=== PATIENT | male | born 1985 | race Hispanic/Latino ===

== ENCOUNTER 2016-06-08 17:40 | Observation (INO) | payer OTHER ==
[2016-06-08 17:57] VITALS: O2SAT 98
[2016-06-08] MEDS ORDERED: Sodium Chloride 0.9% 1,000 ML IV STA (18:18)
--- NOTE | 2016-06-08 18:23 | ED PDOC ---
HPI: Abdomen Time Seen by Provider: 06/08/16 17:46 Chief Complaint (Nursing): Abdominal Pain Chief Complaint (Provider): Abdominal Pain History Per: Patient History/Exam Limitations: no limitations Onset/Duration Of Symptoms: Days (3-4) Severity: Moderate Pain Scale Rating Of: 4 Quality Of Discomfort: "Pain" Associated Symptoms: Loss Of Appetite. denies: Fever, Chills, Nausea, Vomiting Exacerbating Factors: Movement, Deep Breaths Additional Complaint(s): Constantine Vora is a 31 y/o male, with a past medical history of ulcers, presenting to the ER on 06/08/2016 with complaints of right sided abdominal pain onset three -four days. Patient describes pain as "constant" and strictly localized to the right side with no radiation. He states the pain is at a 4/10, but increases sometimes to a 7 or 8 due to exacerbation factors such as bending down (when tying his shoe), deep breaths, or general movement. He denies straining himself via physical activity. Patient additionally denies any rashes, hematuria, dysuria, nausea, or vomiting. Patient says he has had a decreased appetite since the initial onset of symptoms but the pain is not associated with him eating meals. Admits to drinking alcohol yesterday. Past Medical History Reviewed: Historical Data, Nursing Documentation, Vital Signs Vital Signs: Last Vital Signs Temp 97.8 F 06/08/16 17:45 Pulse 58 L 06/08/16 17:45 Resp 20 06/08/16 17:45 BP 135/92 H 06/08/16 17:45 Pulse Ox 98 06/08/16 18:30 - Medical History Other PMH: ulcers - Surgical History Surgical History: Endoscopy Other surgeries: colonoscopy - Family History Family History: States: Unknown Family Hx - Social History Current smoker - smoking cessation education provided: No - Allergies Allergies/Adverse Reactions: Allergies Allergy/AdvReac Type Severity Reaction Status Date / Time No Known Allergies Allergy Verified 06/08/16 17:45 Review of Systems ROS Statement: Except As Marked, All Systems Reviewed And Found Negative Constitutional: Negative for: Fever, Chills Cardiovascular: Negative for: Chest Pain Respiratory: Negative for: Cough, Shortness of Breath Gastrointestinal: Positive for: Abdominal Pain. Negative for: Nausea, Vomiting Genitourinary Male: Negative for: Dysuria, Hematuria Physical Exam - Reviewed Nursing Documentation Reviewed: Yes Vital Signs Reviewed: Yes - Physical Exam Appears: Positive for: Non-toxic, Uncomfortable (appears disheveled and stoic ) Head Exam: Positive for: ATRAUMATIC, NORMOCEPHALIC Skin: Positive for: Normal Color, Warm, Dry Eye Exam: Positive for: Normal appearance, EOMI, PERRL ENT: Positive for: Normal ENT Inspection, Other ((+) DMM) Neck: Positive for: Normal, Painless ROM, Supple Cardiovascular/Chest: Positive for: Regular Rate, Rhythm. Negative for: Murmur Respiratory: Positive for: Normal Breath Sounds. Negative for: Respiratory Distress Gastrointestinal/Abdominal: Positive for: Tenderness (exquisite tenderness in RUQ), Other ((+) Valdez's sign ) Back: Negative for: L CVA Tenderness, R CVA Tenderness Extremity: Positive for: Normal ROM. Negative for: Deformity, Swelling Lymphatic: Positive for: Normal Exam. Negative for: Adenopathy Neurologic/Psych: Positive for: Alert, Oriented (x3). Negative for: Motor/ Sensory Deficits - ECG O2 Sat by Pulse Oximetry: 98 Medical Decision Making Medical Decision Makin:46 Initial Impression- Right sided upper abdominal pain. Differential dx includes but not limited to gall bladder disease, PUD, PNA w/ irritation of diaphragm, UTI, pyelonephritis, and kidney stones Initial Plan- * CMP * Lipase * ED Urine * CBC w/ differential * CXR * Pepcid 20 mg IVP * Sodium Chloride 1,000 ml IV * US Abdomen Complete Documented by Lianna Leyva, acting as a scribe for Mahsa Gant MD. All medical record entries made by the Scribe were at my direction and personally dictated by me. I have reviewed the chart and agree that the record accurately reflects my personal performance of the history, physical exam, medical decision making, and the department course for this patient. I have also personally directed, reviewed, and agree with the discharge instructions and disposition. Disposition - Clinical Impression Clinical Impression: Abdominal discomfort - Patient ED Disposition Is Patient to be Admitted: Transfer of Care - Disposition Disposition: Transfer of Care Disposition Time: 19:06 Condition: STABLE Patient Signed Over To: Peace Swann Present On Arrival: None
[2016-06-08 19:28] LABS: BASO % 0.6 % (0.0-2.0); EOS # 0.2 K/uL (0.0-0.7); EOS % 2.9 % (0.0-4.0); HEMATOCRIT 41.9 % (35.0-51.0); LYMPH # 2.5 K/uL (1.0-4.3); LYMPH % 37.9 % (20.0-40.0); MEAN CELL VOLUME 89.2 fl (80.0-94.0); MEAN CORPUSCULAR HEMOGLOBIN 31.2 pg (27.0-31.0); MEAN PLATELET VOLUME 7.9 fl (7.2-11.7); MONO # 0.6 K/uL (0.0-0.8); MONO % 8.6 % (0.0-10.0); NEUT # 3.3 K/uL (1.8-7.0); NRBC % 0.1 % (0.0-0.0); RED CELL DISTRIBUTION WIDTH 12.8 % (11.5-14.5); WHITE BLOOD COUNT 6.6 K/uL (4.8-10.8)
--- NOTE | 2016-06-08 19:33 | ED PDOC ---
- Laboratory Results Result Diagrams: 06/08/16 19:00 06/08/16 19:00 - ECG O2 Sat by Pulse Oximetry: 98 (RA) Pulse Ox Interpretation: Normal - CT Scan/US Abdomen/Pelvis CT Other Rad Studies (CT/US): Interpreted By Me, Read By Radiologist, Radiology Report Reviewed Medical Decision Making Medical Decision Makin:00 Patient signed out to provider by Dr. Gant. Pending labs and final disposition. 20:51 Patient was reevaluated and reports no improvement in pain. Will order CT scan. 00:10 Abdomen/Pelvis CT Results FINDINGS: Lower thorax: No acute findings. ABDOMEN: Liver: Diffuse fatty infiltration of the liver. Gallbladder and bile ducts: Unremarkable. No calcified stones. No ductal dilation. Pancreas: Unremarkable. No mass. No ductal dilation. Spleen: Unremarkable. No splenomegaly. Adrenals: Unremarkable. No mass. Kidneys and ureters: Unremarkable. No solid mass. No hydronephrosis. Stomach and bowel: Mild fat stranding seen surrounding nondilated right abdominal small bowel loops, nonspecific. This could reflect inflammation, infection, or other etiology. Clinical correlation recommended. Appendix: The appendix is not definitively identified, but no definite evidence of appendicitis is observed in the expected location of the appendix. PELVIS: Bladder: Unremarkable. No mass. Reproductive: Unremarkable as visualized. ABDOMEN and PELVIS: Intraperitoneal space: Unremarkable. No free air. No significant fluid collection. Bones/joints: No acute fracture. No dislocation. Soft tissues: Unremarkable. Vasculature: Unremarkable. No abdominal aortic aneurysm. Lymph nodes: Unremarkable. No enlarged lymph nodes. IMPRESSION: 1. The appendix is not definitively identified, but no definite evidence of appendicitis is observed in the expected location of the appendix. 2. Mild fat stranding seen surrounding nondilated right abdominal small bowel loops, nonspecific. This could reflect inflammation, infection, or other etiology. Clinical correlation recommended. discussed results with patient. pt tolerated po and was resting comfortably in room throughout ER stay and appears to be comfortable thrroughout. pt will follow up with pcp Documented by Lianna Leyva and Frantz Partida, acting as a scribe for Peace Swann MD. All medical record entries made by the Scribe were at my direction and personally dictated by me. I have reviewed the chart and agree that the record accurately reflects my personal performance of the history, physical exam, medical decision making, and the department course for this patient. I have also personally directed, reviewed, and agree with the discharge instructions and disposition. Disposition - Clinical Impression Clinical Impression: Abdominal discomfort - POA Present On Arrival: None - Disposition Disposition: Routine/Home Disposition Time: 00:00 Condition: IMPROVED
[2016-06-08 19:37] LABS: ALB/GLOB RATIO 1.1 (1.0-2.1); ALKALINE PHOSPHATASE 61 U/L (38-126); ALT/SGPT 72 U/L (21-72); AST/SGOT 38 U/L (17-59); BILIRUBIN,TOTAL 0.7 mg/dl (0.2-1.3); BLOOD UREA NITROGEN 14 mg/dl (9-20); CALCIUM 9.3 mg/dL (8.4-10.2); CARBON DIOXIDE 27 mmol/L (22-30); CHLORIDE 105 mmol/L (98-107); GFR AFRICAN-AMERICAN > 60; GLUCOSE,RANDOM 89 mg/dL (75-110); LIPASE 75 U/L (23-300); POTASSIUM 4.1 MMOL/L (3.6-5.0); SODIUM 139 mmol/l (132-148); TOTAL PROTEIN 7.8 G/DL (6.3-8.2)
[2016-06-08] MEDS ORDERED: Iohexol 240 (50 ml) PO ONE (20:51)
[2016-06-08] MEDS ORDERED: Iohexol 300 100 ML IJ ONE (23:01)
[2016-06-08] MEDS ORDERED: Sodium Chloride 0.9% 50 ML IV ONE (23:01)
[2016-06-09 00:51] VITALS: BP 118/72; PULSE 86; RESP 16; TEMP 98.2
--- NOTE | 2016-06-09 08:57 | RAD ---
HISTORY: RUQ pain worse with deep breaths COMPARISON: No prior. TECHNIQUE: Chest PA and lateral FINDINGS: LUNGS: No active pulmonary disease. PLEURA: No significant pleural effusion identified. No pneumothorax apparent. CARDIOVASCULAR: Normal. OSSEOUS STRUCTURES: No significant abnormalities. VISUALIZED UPPER ABDOMEN: Normal. OTHER FINDINGS: None. IMPRESSION: No active disease.
--- NOTE | 2016-06-09 09:29 | CT ---
PROCEDURE: CT Abdomen and Pelvis with contrast HISTORY: abd pain COMPARISON: Comparison is made to the previous ultrasound dated 06/08/2016 TECHNIQUE: Axial and reformatted coronal and sagittal CT images of the abdomen and pelvis were obtained after IV and oral contrast administration. Contrast dose: 95 cc of Omnipaque 300 Radiation dose: Total exam DLP = 954.56 mGy-cm. This CT exam was performed using one or more of the following dose reduction techniques: Automated exposure control, adjustment of the mA and/or kV according to patient size, and/or use of iterative reconstruction technique. FINDINGS: LOWER THORAX: Unremarkable. LIVER: No acute pathology . No gross lesion or ductal dilatation. GALLBLADDER AND BILE DUCTS: Unremarkable. PANCREAS: Unremarkable. No gross lesion or ductal dilatation. SPLEEN: Unremarkable. ADRENALS: Unremarkable. No mass. KIDNEYS AND URETERS: Unremarkable. No hydronephrosis. No solid mass. VASCULATURE: Unremarkable. No aortic aneurysm. BOWEL: Unremarkable. No obstruction. No gross mural thickening. APPENDIX: There is no definite CT evidence of appendicitis. PERITONEUM: Focal fat stranding seen in the right mid anterior abdomen adjacent to the small and large bowel loops image 75/76 of uncertain etiology. The differential diagnosis includes fat infarct, epiploic appendagitis. No free fluid. No free air. LYMPH NODES: Unremarkable. No enlarged lymph nodes. BLADDER: Unremarkable. REPRODUCTIVE: Unremarkable. BONES: No acute fracture. OTHER FINDINGS: None. IMPRESSION: No CT evidence of cholecystitis pancreatitis or appendicitis. Focal fat stranding seen at the right mid abdomen adjacent to the small and large bowel loops suggestive of focal inflammatory changes may related to epiploic appendagitis. Otherwise no evidence of acute pathology Preliminary report was submitted by [facility].
--- NOTE | 2016-06-09 11:06 | US ---
HISTORY: RUQ pain worse with deep breaths COMPARISON: None. TECHNIQUE: Sonographic evaluation of the abdomen. FINDINGS: LIVER: Measures cm. Normal echogenicity of the liver parenchyma. No mass. No intrahepatic bile duct dilatation. GALLBLADDER: Unremarkable. No gallstones. COMMON BILE DUCT: Measures mm. No stones. No dilatation. PANCREAS: Unremarkable as visualized. No mass. No ductal dilatation. RIGHT KIDNEY: Measures cm. Normal echogenicity. No calculus, mass, or hydronephrosis. LEFT KIDNEY: Measures cm. Normal echogenicity. No calculus, mass, or hydronephrosis. SPLEEN: Normal in size and contour. No mass. AORTA: No aneurysmal dilatation. IVC: Unremarkable. OTHER FINDINGS: None. IMPRESSION: Unremarkable abdominal sonogram.
== END 2016-06-09 00:50 | disposition home or self-care (01) ==
LOC: H.ER 17:40 → H.EROBSV 19:50
PROVIDERS: ADMIT Emergency Medicine; ATTEND Emergency Medicine
DX: R10.11 Right upper quadrant pain (principal); Z87.11 Personal history of peptic ulcer disease